=== PATIENT | male | born 1965 | race Hispanic/Latino ===

== ENCOUNTER 2021-11-29 19:28 | Emergency (ER) | payer OTHER ==
[~2021-11-29] VITALS: Ht 170.2 cm; Wt 101.6 kg
[2021-11-29] MEDS ORDERED: ACETAMINOPHEN 325 MG TAB PO ONE (20:00)
[2021-11-29] MEDS ORDERED: CLONIDINE HCL 0.1 MG TAB PO ONE (20:00)
[2021-11-29] MEDS ORDERED: AMLODIPINE BESY10 MG PO (20:07)
[2021-11-29] MEDS ORDERED: ACETAMINOPHEN 325 MG TAB ONE (20:12)
[2021-11-29] MEDS ORDERED: CLONIDINE HCL 0.1 MG TAB ONE (20:12)
== END 2021-11-29 21:40 | disposition home or self-care (01) ==
LOC: FSED 19:56
DX: R51.9 Headache, unspecified (principal); I16.1 Hypertensive emergency; I10 Essential (primary) hypertension
CPT/HCPCS: 70450; 99283